=== PATIENT | female | born 1985 | race African-American/Black ===

== ENCOUNTER 2020-04-22 11:27 | Emergency (ER) | payer MEDICAID ==
[~2020-04-22] VITALS: Ht 160 cm; Wt 123.8 kg
--- NOTE | 2020-04-22 12:56 | NUR ---
ED Nurse Note: urine sample collected and sent to lab
[2020-04-22] MEDS ORDERED: ACETAMINOPHEN500 M3 ORAL (13:45)
[2020-04-22] MEDS ORDERED: IBUPROFEN600 M1 ORAL (13:45)
[2020-04-22] MEDS ORDERED: ROBAXIN-500MG ORAL (14:21)
--- NOTE | 2020-04-22 14:46 | NUR ---
ED Nurse Note: Pt cleared by health care Provider for discharge. DC instructions/prescription was given and explained to pt and verbalized understanding of teachings. All medical devices such as ID band removed. Pt is AAO x4, ambulatory and left with all personal belongings.
[2020-04-22 14:47] VITALS: BP 144/90
--- NOTE | 2020-04-22 16:03 | Diagnostic Imaging Report ---
EXAM: X-RAY [facility] CLINICAL HISTORY: Back pain. COMPARISON: None FINDINGS: Total of 3 views of the lumbar spine were obtained. Alignment is anatomic. There is no fracture, bony lesions or erosions. Disc spaces well-maintained. Mild hypertrophic facet disease noted at L4-5 and L5-S1. Surrounding soft tissue is normal. IMPRESSION: MILD SPONDYLOSIS. NO ACUTE BONY ABNORMALITY.
--- NOTE | 2020-04-22 16:05 | Diagnostic Imaging Report ---
EXAM: X-RAY XRAY [facility] CLINICAL HISTORY: Neck pain. COMPARISON: None FINDINGS: Total of 3 views of the cervical spine were obtained. There is straightening of the cervical spine perhaps due to spasm. Alignment otherwise anatomic. There is no fracture, bony lesions or erosions. Disc space narrowing and anterior spur formation demonstrated at C5-6. There is no prevertebral soft tissue swelling. IMPRESSION: MILD STRAIGHTENING OF THE CERVICAL SPINE PERHAPS RELATED TO SPASM. OTHERWISE NO FRACTURE OR TRAUMATIC MALALIGNMENT.
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
== END 2020-04-22 14:49 | disposition home or self-care (01) ==
LOC: EMR 12:15
DX: S16.1XXA Strain of muscle, fascia and tendon at neck level, initial encounter (principal); S39.012A Strain of muscle, fascia and tendon of lower back, initial encounter; V43.52XA Car driver injured in collision with other type car in traffic accident, initial encounter; Y92.9 Unspecified place or not applicable; E66.9 Obesity, unspecified; Z68.42 Body mass index [BMI] 45.0-49.9, adult
CPT/HCPCS: 72020; 72040; 81025; Z7502; 99284